=== PATIENT | male | born 1995 | race Caucasian/White ===

== ENCOUNTER 2021-08-08 07:10 | Emergency (ER) | payer BC ==
[2021-08-08 07:22] VITALS: BP 138/92; PULSE 96; RESP 18; TEMP 99.1
--- NOTE | 2021-08-08 07:43 | ED ---
General Adult HPI - General Chief complaint: Skin/Abscess/Foreign Body Stated complaint: Rash Time Seen by Provider: 08/08/21 07:25 Source: patient, RN notes reviewed Mode of arrival: ambulatory Limitations: no limitations - History of Present Illness Initial comments: Patient is a pleasant 26-year-old male presenting to the emergency Department with complaints of rash. Onset of symptoms was a couple days ago. Patient did go to urgent care and was given Zyrtec and cream. Patient states there is mild itching did improve with Zyrtec. Patient states rash is low but worse. Patient states his hands feel a little bit swollen. No fevers. Patient received his second immunization almost a week ago from [employer] 4 COVID-19. No dyspnea. - Related Data Previous Rx's Medication Instructions Recorded Sulfamethoxazole/Trimethoprim 1 each PO Q12H 10 Days tab 07/13/14 [Bactrim DS 800-160 mg] predniSONE 50 mg PO DAILY #5 tablet 08/08/21 Allergies Allergy/AdvReac Type Severity Reaction Status Date / Time Penicillins Allergy Rash/Hives Verified 08/08/21 07:22 Review of Systems ROS Statement: Those systems with pertinent positive or pertinent negative responses have been documented in the HPI. ROS Other: All systems not noted in ROS Statement are negative. Constitutional: Denies: fever Eyes: Denies: eye pain ENT: Denies: ear pain Respiratory: Denies: cough, dyspnea Cardiovascular: Denies: chest pain Endocrine: Denies: fatigue Gastrointestinal: Denies: abdominal pain Genitourinary: Denies: dysuria Musculoskeletal: Denies: back pain Skin: Reports: as per HPI, rash Neurological: Denies: weakness Past Medical History Past Medical History: No Reported History History of Any Multi-Drug Resistant Organisms: None Reported Past Surgical History: No Surgical Hx Reported Past Psychological History: No Psychological Hx Reported Smoking Status: Never smoker Past Alcohol Use History: Occasional Past Drug Use History: Marijuana General Exam Limitations: no limitations General appearance: alert, in no apparent distress Head exam: Present: normocephalic Eye exam: Present: normal appearance ENT exam: Present: normal exam Neck exam: Present: normal inspection Respiratory exam: Present: normal lung sounds bilaterally Cardiovascular Exam: Present: regular rate, normal rhythm Extremities exam: Present: normal inspection Neurological exam: Present: alert Psychiatric exam: Present: normal affect, normal mood Skin exam: Present: urticaria (Diffuse urticarial rash, mild. Large patch left knee.) Course Vital Signs 08/08/21 07:16 Temperature 99.1 F Pulse Rate 96 Respiratory 18 Rate Blood Pressure 138/92 O2 Sat by Pulse 97 Oximetry Medical Decision Making - Medical Decision Making Patient is aware that he could have decreased immunity secondary to steroid use with recent vaccination. Vaccination could also be the cause of urticaria. Patient is in no distress at this time. Patient will continue Zyrtec. Patient also advised [id number] Pepcid. Patient is advised to use steroids if symptoms worsen or continue however aware that he may need a booster shot. Disposition Clinical Impression: Urticaria Disposition: HOME SELF-CARE Condition: Stable Instructions (If sedation given, give patient instructions): Urticaria (ED) Additional Instructions: Prescription for steroids has been sent to the pharmacy. Please be aware that this could decrease the benefit of your vaccine and you may need a booster shot. Continue [id number] Zyrtec. Consider [id number] Pepcid. Return for fevers, increased rash, difficulty breathing, swelling of the throat or tongue or face, worsening symptoms or other concerns. Prescriptions: predniSONE 50 mg PO DAILY #5 tablet Is patient prescribed a controlled substance at d/c from ED?: No Referrals: Teodoro King MD [STAFF PHYSICIAN] - 1-2 days Time of Disposition: 07:41
== END 2021-08-08 07:53 | disposition home or self-care (01) ==
LOC: EC 07:10
DX: L50.9 Urticaria, unspecified (principal); F12.90 Cannabis use, unspecified, uncomplicated; Z72.89 Other problems related to lifestyle
CPT/HCPCS: 99282